=== PATIENT | female | born 2000 | race Caucasian/White ===

== ENCOUNTER 2021-03-18 | Inpatient (IN) | payer BC | END 2021-03-19 12:48 | disposition home or self-care (01) | DRG 465 | PROVIDERS: ADMIT Orthopaedic Surgery Orthopaedic Surgery of the Spine | PROC: 0JBR0ZZ Excision of Left Foot Subcutaneous Tissue and Fascia, Open Approach (ICD-10-PCS; principal; 2021-03-18) | PROC: 0QSK04Z Reposition Left Fibula with Internal Fixation Device, Open Approach (ICD-10-PCS; 2021-03-18) | PROC: 0JQR0ZZ Repair Left Foot Subcutaneous Tissue and Fascia, Open Approach (ICD-10-PCS; 2021-03-18) | CPT/HCPCS: 64445; 64447; 76942; 85025; 96374; 96375; 96376; 99284 ==